=== PATIENT | female | born 1960 | race Caucasian/White ===

== ENCOUNTER 2017-03-21 18:52 | Emergency (ER) | payer OTHER ==
[2017-03-21 18:52] VITALS: BMI 31.1
[2017-03-21 18:58] VITALS: BP 144/89; PULSE 78; RESP 18; TEMP 98; O2SAT 98
--- NOTE | 2017-03-21 19:32 | ED PDOC ---
HPI: Abdomen Time Seen by Provider: 03/21/17 19:15 Chief Complaint (Nursing): Abdominal Pain Chief Complaint (Provider): Abdominal Pain History Per: Patient History/Exam Limitations: no limitations Current Symptoms Are (Timing): Gone Now Additional Complaint(s): Radha Olivera is a 56 y/o female, with a past medical history of Diabetes Mellitus, Hypertension, and Asthma, presenting to the ER on 03/21/2017 with earlier episodes of abdominal pain and diarrhea that resolved on its own prior to arrival. Patient reports earlier today she had experienced abdominal cramping as well as several instances of watery, but non-bloody diarrhea. She also states she felt nauseous but did not experience any vomiting. Currently, she is asymptomatic as she does not complain of abdominal pain, diarrhea, or nausea. She further states he experienced chills prior to arrival, which has resolved on its own. Denies any fever. Past Medical History Reviewed: Historical Data, Nursing Documentation, Vital Signs Vital Signs: Last Vital Signs Temp 98.0 F 03/21/17 18:54 Pulse 78 03/21/17 18:54 Resp 18 03/21/17 18:54 BP 144/89 03/21/17 18:54 Pulse Ox 98 03/21/17 19:35 - Medical History PMH: Asthma, HTN Denies: Chronic Kidney Disease - Surgical History Surgical History: No Surg Hx - Family History Family History: States: Unknown Family Hx - Social History Current smoker - smoking cessation education provided: No Alcohol: None Drugs: Denies - Immunization History Hx Tetanus Toxoid Vaccination: No Hx Influenza Vaccination: No Hx Pneumococcal Vaccination: No - Home Medications Home Medications: Ambulatory Orders Medication Instructions Recorded Ergocalciferol (Vitamin D2) 50,000 iu PO Q1 01/13/16 [Vitamin D2] Fluticasone Nasal [Flonase] 0.05 mg NS DAILY PRN 01/13/16 Hydrochlorothiazide 12.5 mg PO DAILY 01/13/16 Ketotifen Fumarate 5 ml OP DAILY 01/13/16 Loratadine [Claritin] 10 mg PO DAILY 01/13/16 amLODIPine [Norvasc] 2.5 mg PO DAILY 01/13/16 metFORMIN [glucOPHAGE] 500 mg PO BID 01/13/16 Montelukast Sodium 10 mg PO QPM #0 tablet 01/14/16 - Allergies Allergies/Adverse Reactions: Allergies Allergy/AdvReac Type Severity Reaction Status Date / Time Penicillins Allergy RASH Verified 03/21/17 18:54 Review of Systems ROS Statement: Except As Marked, All Systems Reviewed And Found Negative Constitutional: Positive for: Chills. Negative for: Fever Gastrointestinal: Positive for: Nausea, Abdominal Pain, Diarrhea. Negative for : Vomiting, Hematochezia Physical Exam - Reviewed Nursing Documentation Reviewed: Yes Vital Signs Reviewed: Yes - Physical Exam Appears: Positive for: Non-toxic, No Acute Distress Head Exam: Positive for: ATRAUMATIC, NORMOCEPHALIC Skin: Positive for: Normal Color. Negative for: Rash Eye Exam: Positive for: Normal appearance, EOMI, PERRL Neck: Positive for: Normal, Painless ROM, Supple Cardiovascular/Chest: Positive for: Regular Rate, Rhythm. Negative for: Murmur Respiratory: Positive for: Normal Breath Sounds. Negative for: Wheezing, Respiratory Distress Gastrointestinal/Abdominal: Positive for: Normal Exam, Soft. Negative for: Tenderness Extremity: Positive for: Normal ROM. Negative for: Deformity, Swelling Neurologic/Psych: Positive for: Alert, Oriented. Negative for: Motor/Sensory Deficits - Laboratory Results Result Diagrams: 03/21/17 19:36 03/21/17 19:36 - ECG O2 Sat by Pulse Oximetry: 98 - Progress Re-evaluation Time: 21:24 Condition: Re-examined, Improved Medical Decision Making Medical Decision Makin:15 Initial Impression- Abdominal Pain and Diarrhea currently resolved in the ED. Differential Diagnosis includes but not limited to- acute gastroenteritis and pancreatitis Initial Plan- * CMP * Lipase * CBC w/ differential Documented by Harper Cifuentes, acting as a scribe for Ray Keyes MD. All medical record entries made by the Scribe were at my direction and personally dictated by me. I have reviewed the chart and agree that the record accurately reflects my personal performance of the history, physical exam, medical decision making, and the department course for this patient. I have also personally directed, reviewed, and agree with the discharge instructions and disposition. Disposition - Clinical Impression Clinical Impression: Nausea vomiting and diarrhea, Abdominal pain - Patient ED Disposition Is Patient to be Admitted: No Doctor Will See Patient In The: Office Counseled Patient/Family Regarding: Studies Performed, Diagnosis, Need For Followup - Disposition Referrals: Rajni Pereira [Medical Doctor] - Disposition: Routine/Home Disposition Time: 21:25 Condition: GOOD Additional Instructions: Return for worsening. Follow up with your PCP in 2-3 days. Instructions: Gastroenteritis (ED)
[2017-03-21 19:40] LABS: BASO # 0.1 K/uL (0.0-0.2); BASO % 0.6 % (0.0-2.0); EOS # 0.1 K/uL (0.0-0.7); EOS % 0.8 % (0.0-4.0); HEMOGLOBIN 13.7 g/dL (12.0-16.0); LYMPH # 0.9 K/uL (1.0-4.3); LYMPH % 9.3 % (20.0-40.0); MEAN CELL VOLUME 88.2 fl (81.0-99.0); MEAN CORPUSCULAR HEMOGLOBIN 30.1 pg (27.0-31.0); MEAN CORPUSCULAR HGB CONC 34.1 g/dL (33.0-37.0); MEAN PLATELET VOLUME 9.9 fl (7.2-11.7); MONO # 0.2 K/uL (0.0-0.8); MONO % 2.6 % (0.0-10.0); NEUT % 86.7 % (50.0-75.0); NRBC % 0.1 % (0.0-0.0); PLATELET COUNT 173 K/uL (130-400); RBC 4.56 Mil/uL (3.80-5.20); RED CELL DISTRIBUTION WIDTH 13.5 % (11.5-14.5); WHITE BLOOD COUNT 9.2 K/uL (4.8-10.8)
[2017-03-21 19:47] LABS: ALB/GLOB RATIO 1.3 (1.0-2.1); ALBUMIN 4.2 g/dL (3.5-5.0); ALT/SGPT 37 U/L (9-52); AST/SGOT 27 U/L (14-36); BLOOD UREA NITROGEN 10 mg/dl (7-17); CALCIUM 9.2 mg/dL (8.4-10.2); GFR AFRICAN-AMERICAN > 60; GFR NON-AFRICAN AMERICAN > 60; LIPASE 62 U/L (23-300)
[2017-03-21 22:33] LABS: BANDS 2 % (0-2); BASOPHIL 1 % (0-2); LYMPHOCYTE 8 % (20-50); MONOCYTE 2 % (0-10); NEUTROPHIL 85 % (42-75); REACTIVE LYMPHOCYTES 2 % (0-0); TOTAL CELLS COUNTED 100
[2017-03-21 22:34] LABS: ACANTHOCYTES SLIGHT; ANISOCYTOSIS SLIGHT; HYPOCHROMIC SLIGHT; PLATELET ESTIMATE NORMAL (NORMAL)
== END 2017-03-21 21:30 | disposition home or self-care (01) ==
LOC: H.ER 18:52
DX: R10.9 Unspecified abdominal pain (principal); R11.2 Nausea with vomiting, unspecified; R19.7 Diarrhea, unspecified; I10 Essential (primary) hypertension; J45.909 Unspecified asthma, uncomplicated; Z79.84 Long term (current) use of oral hypoglycemic drugs; Z88.0 Allergy status to penicillin

== ENCOUNTER 2017-07-24 21:49 | Emergency (ER) | payer OTHER ==
[2017-07-24 21:50] VITALS: BMI 31.1
[2017-07-24 21:55] VITALS: O2SAT 97
[2017-07-24 22:45] LABS: BASO % 0.5 % (0.0-2.0); EOS # 0.1 K/uL (0.0-0.7); EOS % 0.9 % (0.0-4.0); HEMATOCRIT 45.5 % (34.0-47.0); LYMPH # 0.8 K/uL (1.0-4.3); LYMPH % 8.5 % (20.0-40.0); MEAN CORPUSCULAR HEMOGLOBIN 29.7 pg (27.0-31.0); MEAN CORPUSCULAR HGB CONC 33.4 g/dL (33.0-37.0); MEAN PLATELET VOLUME 10.2 fl (7.2-11.7); MONO # 0.6 K/uL (0.0-0.8); MONO % 5.7 % (0.0-10.0); NEUT # 8.2 K/uL (1.8-7.0); NEUT % 84.4 % (50.0-75.0); NRBC % 0.1 % (0.0-0.0); PLATELET COUNT 201 K/uL (130-400); RED CELL DISTRIBUTION WIDTH 13.3 % (11.5-14.5); WHITE BLOOD COUNT 9.7 K/uL (4.8-10.8)
--- NOTE | 2017-07-24 23:01 | ED PDOC ---
HPI: Abdomen Time Seen by Provider: 07/24/17 21:59 Chief Complaint (Nursing): Abdominal Pain Chief Complaint (Provider): Abdominal pain History Per: Patient History/Exam Limitations: no limitations Onset/Duration Of Symptoms: Days (x10), Worse Since (today) Current Symptoms Are (Timing): Still Present Pain Scale Rating Of: 10 Location Of Pain/Discomfort: RUQ, Epigastric Associated Symptoms: Nausea Additional Complaint(s): Radha Olivera is a 56 year old female, with a past medical of diabetes, and hypertension, who presents to the emergency department complaining of a worsening epigastric and RUQ abdominal pain onset for x10 days. Patient states today the pain became severe which prompted her visit to the ED. Patient was seen by PMD x1 week ago. PMD did outpatient labs and ultrasound. Patient had the ultrasound at [facility] yesterday and labs were normal. Patient was also seen by GI specialist yesterday who started her on omeprazole. Patient has a scheduled endoscopy on Thursday. No further medical complaints. PMD: [facility] Past Medical History Reviewed: Historical Data, Nursing Documentation, Vital Signs Vital Signs: Last Vital Signs Temp 98.0 F 07/25/17 01:50 Pulse 82 07/25/17 01:50 Resp 16 07/25/17 01:50 BP 137/76 07/25/17 01:50 Pulse Ox 97 07/25/17 02:06 - Medical History PMH: Asthma, Diabetes, HTN Denies: Chronic Kidney Disease - Surgical History Surgical History: - Family History Family History: States: Unknown Family Hx - Social History Current smoker - smoking cessation education provided: No Alcohol: None Drugs: Denies - Immunization History Hx Tetanus Toxoid Vaccination: No Hx Influenza Vaccination: No Hx Pneumococcal Vaccination: No - Home Medications Home Medications: Ambulatory Orders Medication Instructions Recorded Ergocalciferol (Vitamin D2) 50,000 iu PO Q1 01/13/16 [Vitamin D2] Fluticasone Nasal [Flonase] 0.05 mg NS DAILY PRN 01/13/16 Hydrochlorothiazide 12.5 mg PO DAILY 01/13/16 Ketotifen Fumarate 5 ml OP DAILY 01/13/16 Loratadine [Claritin] 10 mg PO DAILY 01/13/16 amLODIPine [Norvasc] 2.5 mg PO DAILY 05/29/16 metFORMIN [glucOPHAGE] 500 mg PO BID 01/13/16 Montelukast Sodium 10 mg PO QPM #0 tablet 01/14/16 Dicyclomine [Bentyl] 20 mg PO Q12 PRN #20 tab 07/25/17 Ondansetron ODT [Zofran ODT] 4 mg PO Q6 PRN #16 odt 07/25/17 - Allergies Allergies/Adverse Reactions: Allergies Allergy/AdvReac Type Severity Reaction Status Date / Time Penicillins Allergy RASH Verified 07/24/17 21:52 Review of Systems ROS Statement: Except As Marked, All Systems Reviewed And Found Negative Gastrointestinal: Positive for: Nausea, Abdominal Pain (Epigastric and RUQ) Physical Exam - Reviewed Nursing Documentation Reviewed: Yes Vital Signs Reviewed: Yes - Physical Exam Appears: Positive for: Well, Non-toxic, No Acute Distress Head Exam: Positive for: ATRAUMATIC, NORMAL INSPECTION, NORMOCEPHALIC Skin: Positive for: Normal Color, Warm, Dry Eye Exam: Positive for: EOMI, Normal appearance, PERRL Neck: Positive for: Normal, Painless ROM, Supple Cardiovascular/Chest: Positive for: Regular Rate, Rhythm. Negative for: Murmur Respiratory: Positive for: Normal Breath Sounds. Negative for: Respiratory Distress Gastrointestinal/Abdominal: Positive for: Tenderness (RUQ and epigastric) Back: Positive for: Normal Inspection. Negative for: L CVA Tenderness, R CVA Tenderness Extremity: Positive for: Normal ROM. Negative for: Deformity, Swelling Neurologic/Psych: Positive for: Alert, Oriented - Laboratory Results Result Diagrams: 07/24/17 22:40 07/24/17 22:40 - ECG O2 Sat by Pulse Oximetry: 97 (RA) Pulse Ox Interpretation: Normal Medical Decision Making Medical Decision Making: Initial Impression: 56 y/o female with RUQ and epigastric pain Initial Plan: --Abd & Pelvis IV contrasat [CT] --CMP --Lipase --CBC w/ differential --Urinalysis --reevaluation -Patient is currently declining any medication Labs reviewed show no clinically significant abnormalities Patient continues to feel well in ED and has scheduled EGD in 3 days Dx Gastritis Stable Rx Bentyl/Zofran pt advised to continue Omeprazole Return precautions were provided Scribe Attestation: Documented by Erick Narvaez, acting as a scribe for Irvin Murray MD Provider Scribe Attestation: All medical record entries made by the Scribe were at my direction and personally dictated by me. I have reviewed the chart and agree that the record accurately reflects my personal performance of the history, physical exam, medical decision making, and the department course for this patient. I have also personally directed, reviewed, and agree with the discharge instructions and disposition. Disposition - Clinical Impression Clinical Impression: Gastritis, Abdominal pain - Disposition Disposition: Routine/Home Disposition Time: 01:00 Condition: STABLE Prescriptions: Dicyclomine [Bentyl] 20 mg PO Q12 PRN #20 tab PRN Reason: abdominal pain Ondansetron ODT [Zofran ODT] 4 mg PO Q6 PRN #16 odt PRN Reason: Nausea/Vomiting Instructions: Gastritis (ED) Forms: [employer] (Mongolian) Print Language: SAUDI ARABIAN
[2017-07-24 23:08] LABS: ALB/GLOB RATIO 1.4 (1.0-2.1); ALKALINE PHOSPHATASE 55 U/L (38-126); ALT/SGPT 44 U/L (9-52); AST/SGOT 27 U/L (14-36); BILIRUBIN,TOTAL 0.9 mg/dl (0.2-1.3); BLOOD UREA NITROGEN 15 mg/dl (7-17); CALCIUM 9.5 mg/dL (8.4-10.2); CARBON DIOXIDE 31 mmol/L (22-30); CHLORIDE 99 mmol/L (98-107); GFR AFRICAN-AMERICAN > 60; GLUCOSE,RANDOM 120 mg/dL (65-105); LIPASE 73 U/L (23-300); POTASSIUM 3.8 MMOL/L (3.6-5.0); SODIUM 142 mmol/l (132-148); TOTAL PROTEIN 7.8 G/DL (6.3-8.2)
[2017-07-24 23:50] LABS: RBC URINE 4 /hpf (0-3); URINE BACTERIA RARE (<OCC); URINE BILIRUBIN NEGATIVE (NEGATIVE); URINE BLOOD NEGATIVE (NEGATIVE); URINE COLOR YELLOW (YELLOW); URINE GLUCOSE (UA) NEG (Normal); URINE KETONE NEGATIVE (NEGATIVE); URINE LEUKOCYTE ESTERASE TRACE Leu/uL (Negative); URINE PROTEIN 30 mg/dL (NEGATIVE); WBC URINE 4 /hpf (0-5)
[2017-07-25] MEDS ORDERED: Iohexol 300 100 ML IJ ONE (00:32)
[2017-07-25 00:42] LABS: BASOPHIL 1 % (0-2); EOSINOPHIL 1 % (0-7); NEUTROPHIL 81 % (42-75); REACTIVE LYMPHOCYTES 2 % (0-0); TOTAL CELLS COUNTED 100
[2017-07-25 00:43] LABS: LARGE PLATELETS PRESENT; PLATELET CLUMPS PRESENT
[2017-07-25 01:51] VITALS: BP 137/76; PULSE 82; RESP 16; TEMP 98
--- NOTE | 2017-07-25 08:31 | CT ---
PROCEDURE: CT Abdomen and Pelvis with contrast HISTORY: RUQ pain COMPARISON: None. TECHNIQUE: Contrast dose: 95 cc of Omnipaque 300 Radiation dose: Total exam DLP = 1036 mGy-cm. This CT exam was performed using one or more of the following dose reduction techniques: Automated exposure control, adjustment of the mA and/or kV according to patient size, and/or use of iterative reconstruction technique. FINDINGS: LOWER THORAX: Unremarkable. LIVER: Fatty liver. No gross lesion or ductal dilatation. GALLBLADDER AND BILE DUCTS: Unremarkable. PANCREAS: Unremarkable. No gross lesion or ductal dilatation. SPLEEN: Unremarkable. ADRENALS: Unremarkable. No mass. KIDNEYS AND URETERS: Unremarkable. No hydronephrosis. No solid mass. VASCULATURE: Unremarkable. No aortic aneurysm. BOWEL: Unremarkable. No obstruction. No gross mural thickening. APPENDIX: Normal appendix. PERITONEUM: Unremarkable. No free fluid. No free air. LYMPH NODES: Unremarkable. No enlarged lymph nodes. BLADDER: Unremarkable. REPRODUCTIVE: Unremarkable. BONES: No acute fracture. OTHER FINDINGS: None. IMPRESSION: Fatty liver.
== END 2017-07-25 01:56 | disposition home or self-care (01) ==
LOC: H.ER 21:49
DX: K29.70 Gastritis, unspecified, without bleeding (principal); E11.9 Type 2 diabetes mellitus without complications; I10 Essential (primary) hypertension; J45.909 Unspecified asthma, uncomplicated; K76.0 Fatty (change of) liver, not elsewhere classified; Z79.84 Long term (current) use of oral hypoglycemic drugs; Z88.0 Allergy status to penicillin
CPT/HCPCS: 74177; 80053; 81003; 83690; 85025; 99285; Q9967